=== PATIENT | female | born 1965 | race American Indian/Alaskan Native ===

== ENCOUNTER 2023-02-16 19:56 | Emergency (ER) | payer MEDICAID, OTHER ==
[~2023-02-16] VITALS: Ht 160 cm; Wt 54.5 kg
[~2023-02-16 19:56] MED LIST: CARI350T PO
[2023-02-16] MEDS ORDERED: normal saline 1000ml 1,000 ML IVB ONE (20:05)
--- NOTE | 2023-02-16 20:07 | NUR ---
Dr Mobley at [facility] and labs/ua cancelled.
[2023-02-16 22:16] VITALS: BP 118/64
== END 2023-02-16 22:18 | disposition home or self-care (01) ==
LOC: ER 19:57
DX: R41.82 Altered mental status, unspecified (principal); F12.10 Cannabis abuse, uncomplicated; F41.9 Anxiety disorder, unspecified; Z98.890 Other specified postprocedural states
CPT/HCPCS: 93005; 96360; 99283; J7030; 99284

== ENCOUNTER 2024-12-08 16:43 | Emergency (ER) | payer MEDICAID, OTHER ==
[~2024-12-08] VITALS: Ht 165.1 cm; Wt 56.0 kg
[2024-12-08] MEDS: acetaminophen 325mg tablet PO ONE (19:53)
[2024-12-08] MEDS: bacitracin 15gm ointment TP ONE (19:53)
[2024-12-08 19:58] VITALS: BP 136/95; PULSE 100; RESP 19; O2SAT 100
== END 2024-12-08 20:00 | disposition home or self-care (01) ==
LOC: ER 16:44
DX: S01.01XA Laceration without foreign body of scalp, initial encounter (principal); F41.9 Anxiety disorder, unspecified; R22.0 Localized swelling, mass and lump, head; M19.90 Unspecified osteoarthritis, unspecified site; W06.XXXA Fall from bed, initial encounter; Y93.89 Activity, other specified; Y92.89 Other specified places as the place of occurrence of the external cause; Y99.8 Other external cause status
CPT/HCPCS: 12002; 70450; 99284

== ENCOUNTER 2025-02-20 11:19 | Emergency (ER) | payer MEDICAID, OTHER ==
[~2025-02-20] VITALS: Ht 160 cm; Wt 50.4 kg
[2025-02-20 11:20] VITALS: BP 118/73; PULSE 89; RESP 16; TEMP 98; O2SAT 100
--- NOTE | 2025-02-20 11:25 | Physician Documentation ---
History of Present Illness ~ Stated Complaint: KNEE PAIN FALL Time Seen by MD: 12:45 OK to notify your PCP?: Yes Primary Medical Doctor: [facility] Source: patient Mode of Arrival: POV Exam Limitations: no limitations HPI 59 y/o female with c/o bilateral knee pain after ground level fall just prior to coming to ER about 30minutes ago. Patient did not hit her head, no loss of consciousness. She is wearing jeans pants and states that this helped protect her fall. She states the worst thing about my fall was is that I lost my ice cream cone. she still wanted to come here for evaluation even though she states I do not think I hurt myself. Tetanus witin 5 years: Yes Medication Reconciliation Allergies: Coded Allergies: No Known Allergies (Unverified , 03/22/18) Scheduled PRN Carisoprodol (Soma), 1 TABLET PO Q8H PRN for muscle spasms Past Medical History Past Medical History: Arthritis, Anxiety Past Surgical History: , orthopedic surgeries Alcohol Use: Rarely Drug Use: marijuana Lives with: Family Lives In: Home Occupation: disabled Review of Systems All Other Systems at this time: Reviewed and Negative Physical Exam Physical Exam General Appearance: Alert, WD/WN. NAD. HEENT: NCAT, PERRL, EOMI. Neck: Supple, trachea midline. Lungs: Breathing unlabored Extremities: Normal inspection. No edema. No swelling of the knee joints no abrasions erythema active range motion full. Skin: Warm/dry, normal color Neurological: Alert and oriented x4, normal gait. Psychiatric: Affect congruent with mood. Progress Results/Orders Results/Orders Vital Signs 02/20/25 11:20 Temp 98.0 Pulse 89 Resp 16 B/P (MAP) 118/73 Pulse Ox 100 O2 Flow Rate 0 Medical Decision Making Knee Diff Dx:Considerations: Include: Abrasion, Arthritis, Contusion, DJD, Fracture-femur, Fracture-fibula, Fracture-patella, Fracture-tibia, Gout, Hematoma, Laceration, Meniscus injury, Neurovascular injury, Open fracture, Rheumatoid arthritis, Septic, Sprain, Sprain-MCL, Sprain-LCL, Sprain-ACL, Sprain-PCL Departure Time of Disposition: 13:17 Disposition: 01 HOME / SELF CARE / HOMELESS Impression: Primary Impression: Knee pain Qualified Codes: M25.561 - Pain in right knee; M25.562 - Pain in left knee Additional Impression: Patellar contusion Qualified Codes: S80.00XA - Contusion of unspecified knee, initial encounter Condition: Stable Discharge Instructions: Acute Knee Pain, Adult Additional Instructions: F/U WITH PCP ABOUT YOUR KNEE PAIN IF DOES NOT RESOLVE NO EVIDENCE FOR FRACTURE OR LIGAMENT INJURY NORMAL INSPECT, SUSPECT JUST CONTUSION TO [place] WHICH SHOULD RESOLVE Referrals: NO PRIMARY CARE PROVIDER (PCP) Education Educated: Patient Educated regarding: diagnosis, treatment, need for follow up Additional Comment Medical Screen Exam 59 y/o female with ground level fall on cement 30minutes ago and landed on knees. Was wearing pants thus states did not cut her knees. States that "the worst thing about my fall is I lost my ice cream." Patient got up without any help. Did not hit head. No loss of consciousness. PE: Knees: left patella appears very minimally edematous. skin intact. no edema over right knee or effusion. skin intact. arom of knee joints full. minimal ttp over joint space. A/P: 1. Knee pain, bilateral, acute. No evidence for fracture or ligament injury. Fall and exam findings consistent with contusion. 2. Ground level fall The note accurately reflects work and decisions made by me for medical screening exam. Elisabeth ACUNA 02/20/25 11:24 Signature Scribe Signature: x Attestation: ELISABETH Guardado Feb 20, 2025 11:25
== END 2025-02-20 13:30 | disposition home or self-care (01) ==
LOC: ER 11:19
DX: S80.02XA Contusion of left knee, initial encounter (principal); S80.01XA Contusion of right knee, initial encounter; F41.9 Anxiety disorder, unspecified; M19.90 Unspecified osteoarthritis, unspecified site; F12.90 Cannabis use, unspecified, uncomplicated; W18.30XA Fall on same level, unspecified, initial encounter; Y93.89 Activity, other specified; Y92.89 Other specified places as the place of occurrence of the external cause; Y99.8 Other external cause status
CPT/HCPCS: 99281